=== PATIENT | female | born 1970 | race Caucasian/White ===

== ENCOUNTER 2022-02-10 10:51 | Day surgery (SDC) | payer MEDICARE ==
[~2022-02-10] VITALS: Ht 154.9 cm; Wt 74.0 kg
[~2022-02-10 10:51] MED LIST: LISI20 PO
--- NOTE | 2022-02-10 13:26 | NUR ---
02/10/22 1326 EFFIE ESTRADA UPDATED PT'S ON DELAY OF PROCEDURE. PT JUST GOING IN TO OR, NOTIFIED AND RX WAITING AT [facility] FOR [facility]GS [facility]NAGER
--- NOTE | 2022-02-10 15:14 | NUR ---
02/10/22 1514 DONNA MENSAH PT C/O PAIN 8/10 IN LEFT FOOT. FENTANYL GIVEN 50MCG IV PUSH NOW. PT EATING CRACKERS AND DRINKING SODA. PT IS AT BEDSIDE. THEY ARE CONCERNED ABOUT HER PAIN AND IF THEY WILL BE ABLE TO MANAGE HER PAIN AT HOME. HAS ALREADY PICKED HER PAIN MEDICATION FROM THE PHARMACY.
== END 2022-02-10 16:05 | disposition home or self-care (01) ==
LOC: ORSCSDS 10:51
PROVIDERS: Podiatrist Foot & Ankle Surgery
PROC: 0QSR04Z Reposition Left Toe Phalanx with Internal Fixation Device, Open Approach (ICD-10-PCS; principal; 2022-02-10 12:00)
PROC: 0SGJ04Z Fusion of Left Tarsal Joint with Internal Fixation Device, Open Approach (ICD-10-PCS; principal; 2022-02-10 12:00)
DX: M21.612 Bunion of left foot (principal); I10 Essential (primary) hypertension; Z79.899 Other long term (current) drug therapy
CPT/HCPCS: A9270; C1713; C1776; J0171; J0690; J1100; J2250; J2405; J2704; J3010

== ENCOUNTER 2022-04-20 19:08 | Emergency (ER) | payer MEDICARE ==
[~2022-04-20] VITALS: Ht 149.9 cm; Wt 76.0 kg
[2022-04-20 20:07] LABS: BASOPHILS ABSOLUTE AUTO 0.03 K/mm3 (0.00-0.23); BASOPHILS PERCENT AUTO 1 % (0-2); EOSINOPHILS ABSOLUTE AUTO 0.11 K/mm3 (0.00-0.68); EOSINOPHILS PERCENT AUTO 2 % (0-6); Hematocrit 44.6 % (33.0-51.0); Hemoglobin 14.7 g/dL (11.5-16.0); IMMATURE GRAN ABSOLUTE AUTO 0.01 K/mm3 (0.00-0.10); IMMATURE GRAN PERCENT AUTO 0 % (0-1); LYMPHOCYTES ABSOLUTE AUTO 1.79 K/mm3 (0.84-5.20); LYMPHOCYTES PERCENT AUTO 33 % (21-46); MONOCYTES ABSOLUTE AUTO 0.44 K/mm3 (0.16-1.47); MONOCYTES PERCENT AUTO 8 % (4-13); Mean Corpuscular HGB 30.8 pg (26.0-34.0); Mean Corpuscular Volume 94 fL (80-100); Mean Platelet Volume 9.7 fL (9.1-12.4); NEUTROPHILS ABSOLUTE AUTO 3.07 K/mm3 (1.96-9.15); NEUTROPHILS PERCENT AUTO 56 % (41-73); Platelet Count 320 K/mm3 (150-400); RDW Coefficient Variation 12.7 % (11.7-14.2); RDW Standard Deviation 43.9 fL (35.1-46.3); Red Blood Cell Count 4.77 M/mm3 (3.80-5.20); White Blood Cell Count 5.45 K/mm3 (4.00-11.30)
[2022-04-20 20:27] LABS: Albumin/Globulin Ratio 0.9 (0.8-1.8); Bilirubin, Total 0.1 mg/dL (0.1-1.0); Bun/Creatinine Ratio 19.7 (12.0-20.0); Calcium, Blood 7.2 mg/dL (8.5-10.1); Creatinine, Blood 0.71 mg/dL (0.40-1.00); Globulin, Blood 3.4 g/dL (2.2-4.0); Potassium, Blood 3.4 mmol/L (3.5-5.5); Total Protein, Blood 6.4 g/dL (6.4-8.2)
[2022-04-20 21:07] LABS: International Normalized Ratio 0.99; Prothrombin Time Results 10.4 Sec (9.7-11.5)
[2022-04-20 22:11] LABS: Source, Urine Clean Catch
[2022-04-20 22:13] LABS: Bilirubin, Urine Neg (Neg); Blood, Urine Neg (Neg); Glucose Qualitative, Urine Neg (Neg); Ketones, Urine Neg (Neg); Leukocyte Esterase, Urine Neg (Neg); Nitrite, Urine Neg (Neg); Protein, Urine Neg (Neg); Urobilinogen, Urine NORM (Normal)
[2022-04-20 22:18] LABS: Appearance, Urine Clear (Clear); Color, Urine Yellow (P-Yellow)
[2022-04-20 22:43] LABS: Magnesium, Blood 1.9 mg/dL (1.6-2.4); Thyroid Stimulating Hormone 0.818 uIU/mL (0.360-4.800)
[2022-04-20] MEDS ORDERED: LISI20 PO (22:57)
[2022-04-20] MEDS ORDERED: AMOCLA875 PO (22:57)
== END 2022-04-20 23:27 | disposition home or self-care (01) ==
LOC: ER 19:08
PROVIDERS: Emergency Medicine; Student in an Organized Health Care Education/Training Program
DX: I10 Essential (primary) hypertension (principal); J32.9 Chronic sinusitis, unspecified; R41.0 Disorientation, unspecified; Z79.899 Other long term (current) drug therapy
CPT/HCPCS: 36415; 70450; 80053; 81003; 82947; 83735; 84443; 85025; 85610